=== PATIENT | male | born 1955 | race Caucasian/White ===

== ENCOUNTER → 2018-09-19 | Outpatient (CLI) | payer BC ==
[~2018-09-19] MED LIST: AVPAK AZITHROM250 M1 PO; DUONEB 3 MG/3 ML3 M1 INH; PREDNISONE10 MG PO; ROBITUSSIN AC 110 ML PO
== END | disposition home or self-care (01) ==
LOC: LAB 15:16
DX: E87.1 Hypo-osmolality and hyponatremia (principal)

== ENCOUNTER → 2018-10-04 | Outpatient (CLI) | payer BC ==
[2018-10-04 17:36] LABS: ALBUMIN 3.4 gm/dl (3.1-4.5); ALKALINE PHOSPHATASE 82 U/L (45-117); BUN 14 mg/dl (7-24); CHLORIDE 91 mmol/L (98-107); CHOLESTEROL 156 mg/dL (<200); CREATININE 0.86 mg/dL (0.70-1.30); HDL CHOLESTEROL 95 mg/dl (40-60); LDL CHOLESTEROL 50 mg/dL (9-159); POTASSIUM 4.5 mmol/L (3.5-5.1); SGOT/AST 44 IU/L (3-35); SGPT/ALT 28 U/L (12-78); SODIUM 128 mmol/L (136-145); TOTAL PROTEIN 7.5 gm/dL (6.4-8.2); TRIGLYCERIDES 56 mg/dl (<150); VLDL CHOLESTEROL 11 mg/dL (6-40)
== END | disposition home or self-care (01) ==
LOC: LAB 16:39
PROVIDERS: Family Medicine
DX: E78.00 Pure hypercholesterolemia, unspecified (principal); E74.9 Disorder of carbohydrate metabolism, unspecified

== ENCOUNTER → 2018-12-06 | Outpatient (CLI) | payer BC ==
[2018-12-06 17:23] LABS: ALBUMIN 3.6 gm/dl (3.1-4.5); BUN 11 mg/dl (7-24); CHLORIDE 92 mmol/L (98-107); CREATININE 0.71 mg/dL (0.70-1.30); PHOSPHOROUS 3.1 mg/dL (2.5-4.9); POTASSIUM 4.1 mmol/L (3.5-5.1); SODIUM 129 mmol/L (136-145)
== END | disposition home or self-care (01) ==
LOC: LAB 16:27
PROVIDERS: Family Medicine
DX: E87.0 Hyperosmolality and hypernatremia (principal)

== ENCOUNTER 2020-12-10 03:31 | Observation (INO) | payer MEDICARE ==
[~2020-12-10] VITALS: Ht 178 cm; Wt 41.4 kg
[2020-12-10 03:32] VITALS: BP 131/95
[2020-12-10 04:30] LABS: BASO % 0.3 % (0.0-1.0); EOS % 0.1 % (1.0-4.0); HEMATOCRIT 40.4 % (42.0-52.0); LYMPH # 0.5 10*3/uL (1.3-4.4); LYMPH % 4.4 % (27.0-41.0); MEAN CELL VOLUME 95.5 fl (80.0-94.0); MEAN CORPUSCULAR HGB 32.9 pg (27.0-31.0); MEAN CORPUSCULAR HGB CONC 34.4 g/dl (33.0-37.0); MEAN PLATELET VOLUME 8.5 fl (9.6-12.3); MONO # 0.7 10*3/uL (0.1-1.0); MONO % 5.5 % (3.0-9.0); NEUT # 10.6 10*3/uL (2.3-7.9); NEUT % 89.4 % (47.0-73.0); PLATELET COUNT AUTOMATED 455 10*3/uL (130-400); RED BLOOD COUNT 4.23 10*6/uL (4.50-5.90); RED CELL DISTRI WIDTH 12.8 % (0-14.5); WHITE BLOOD COUNT 11.8 10*3/uL (4.8-10.8)
[2020-12-10 04:46] LABS: ALBUMIN 3.1 gm/dl (3.1-4.5); ALKALINE PHOSPHATASE 106 U/L (45-117); BUN 21 mg/dl (7-24); CHLORIDE 87 mmol/L (98-107); CREATININE 0.92 mg/dL (0.70-1.30); POTASSIUM 4.1 mmol/L (3.5-5.1); SGOT/AST 24 IU/L (3-35); SGPT/ALT 18 U/L (12-78); SODIUM 123 mmol/L (136-145); TOTAL PROTEIN 7.4 gm/dL (6.4-8.2)
[2020-12-10 05:18] LABS: BILIRUBIN Negative (Negative); BLOOD Negative (Negative); CLARITY Clear (Clear); COLOR Yellow (Yellow); GLUCOSE Negative (Negative); KETONE Trace (Negative); LEUKO ESTERASE Negative (Negative); NITRITE Negative (Negative); SPECIFIC GRAVITY 1.015 (1.001-1.030)
[2020-12-10 05:26] LABS: UROBILINOGEN 0.2 E.U./dl (0.0-1.0)
[2020-12-10 05:57] LABS: RBC 0-2 rbc/hpf (0-2)
[2020-12-10 06:14] LABS: URINE AMPHETAMINES > 1000 (1000ng/ml); URINE BARBITURATES < 200 (200ng/ml); URINE BENZODIAZEPINES < 200 (200ng/ml); URINE CANNABINOIDS (THC) > 50 (50ng/ml); URINE COCAINE > 300 (300ng/ml); URINE METHADONE < 300 (300ng/ml); URINE OPIATES < 300 (300ng/ml)
[2020-12-10 06:18] LABS: URINE PHENCYCLIDINE < 25 (25ng/ml)
[2020-12-10 08:45] VITALS: BP 135/83
[2020-12-10] MEDS ORDERED: ATROVENT HFA12.9 GM INH (09:13)
[2020-12-10] MEDS ORDERED: ADVIL200 MG PO (09:14)
[2020-12-10 12:00] VITALS: BP 140/92
[2020-12-10 16:00] VITALS: BP 150/87
[2020-12-10 20:02] VITALS: BP 136/89
[2020-12-11] VITALS: BP 136/86
[2020-12-11 06:22] LABS: BASO % 0.2 % (0.0-1.0); EOS % 0.2 % (1.0-4.0); HEMATOCRIT 35.1 % (42.0-52.0); LYMPH # 0.4 10*3/uL (1.3-4.4); LYMPH % 4.4 % (27.0-41.0); MEAN CELL VOLUME 95.4 fl (80.0-94.0); MEAN CORPUSCULAR HGB 32.6 pg (27.0-31.0); MEAN CORPUSCULAR HGB CONC 34.2 g/dl (33.0-37.0); MEAN PLATELET VOLUME 8.5 fl (9.6-12.3); MONO # 0.6 10*3/uL (0.1-1.0); MONO % 5.9 % (3.0-9.0); NEUT # 8.8 10*3/uL (2.3-7.9); PLATELET COUNT AUTOMATED 366 10*3/uL (130-400); RED BLOOD COUNT 3.68 10*6/uL (4.50-5.90); RED CELL DISTRI WIDTH 12.9 % (0-14.5); WHITE BLOOD COUNT 9.9 10*3/uL (4.8-10.8)
[2020-12-11 06:53] LABS: ALBUMIN 2.3 gm/dl (3.1-4.5); ALKALINE PHOSPHATASE 86 U/L (45-117); BUN 18 mg/dl (7-24); CHLORIDE 89 mmol/L (98-107); CREATININE 0.62 mg/dL (0.70-1.30); POTASSIUM 3.7 mmol/L (3.5-5.1); SGOT/AST 19 IU/L (3-35); SGPT/ALT 14 U/L (12-78); SODIUM 125 mmol/L (136-145); TOTAL PROTEIN 6.2 gm/dL (6.4-8.2)
[2020-12-11 07:45] VITALS: BP 128/78
[2020-12-11 12:00] VITALS: BP 136/76
[2020-12-11 12:08] LABS: BUN 17 mg/dl (7-24); CHLORIDE 91 mmol/L (98-107); CREATININE 0.51 mg/dL (0.70-1.30); POTASSIUM 4.3 mmol/L (3.5-5.1); SODIUM 124 mmol/L (136-145)
[2020-12-11 16:00] VITALS: BP 130/92
== END 2020-12-11 20:36 | disposition left against medical advice (07) ==
LOC: ED 03:31 → 5E 07:22 → EDHOLD 07:22 → 5E 07:22
PROVIDERS: Emergency Medicine; Internal Medicine Nephrology; ADMIT Internal Medicine; ATTEND Internal Medicine
DX: F11.20 Opioid dependence, uncomplicated (principal); F10.20 Alcohol dependence, uncomplicated; E43 Unspecified severe protein-calorie malnutrition; Z20.822 Contact with and (suspected) exposure to COVID-19; R33.9 Retention of urine, unspecified; E87.1 Hypo-osmolality and hyponatremia; J20.9 Acute bronchitis, unspecified; E83.39 Other disorders of phosphorus metabolism; J44.9 Chronic obstructive pulmonary disease, unspecified

== ENCOUNTER 2020-12-17 02:17 | Emergency (ER) | payer MEDICARE ==
[~2020-12-17 02:17] MED LIST changes: +ADVIL200 MG PO; +ATROVENT HFA12.9 GM INH
== END 2020-12-17 04:00 | disposition left against medical advice (07) ==
LOC: ED 02:17
DX: R41.0 Disorientation, unspecified (principal); Z91.041 Radiographic dye allergy status; Z79.899 Other long term (current) drug therapy; Z53.29 Procedure and treatment not carried out because of patient's decision for other reasons

== ENCOUNTER 2021-01-04 18:29 | Inpatient (IN) | payer MEDICARE ==
[~2021-01-04] VITALS: Ht 182.8 cm; Wt 53.2 kg
[2021-01-04 18:35] VITALS: BP 135/85
[2021-01-04 19:05] LABS: MEAN CELL VOLUME 91.2 fl (80.0-94.0); MEAN CORPUSCULAR HGB 32.7 pg (27.0-31.0); MEAN CORPUSCULAR HGB CONC 35.9 g/dl (33.0-37.0); MEAN PLATELET VOLUME 7.8 fl (9.6-12.3); PLATELET COUNT AUTOMATED 677 10*3/uL (130-400); RED BLOOD COUNT 3.18 10*6/uL (4.50-5.90); RED CELL DISTRI WIDTH 12.2 % (0-14.5); WHITE BLOOD COUNT 21.9 10*3/uL (4.8-10.8)
[2021-01-04 19:11] LABS: BILIRUBIN Negative (Negative); BLOOD Negative (Negative); CLARITY Clear (Clear); COLOR Yellow (Yellow); GLUCOSE Negative (Negative); KETONE Negative (Negative); LEUKO ESTERASE Negative (Negative); NITRITE Negative (Negative); PH 7.5 (4.5-8.0); UROBILINOGEN 0.2 E.U./dl (0.0-1.0)
[2021-01-04 19:19] LABS: ACT PARTIAL THROMBO TIME 28.5 SECONDS (20.0-32.1); INTERNATIONAL NORM RATIO 1.1 (2.0-3.5)
[2021-01-04 19:21] LABS: BURR CELLS FEW; PLATELET SUFFICIENCY HIGH (NORMAL); TOTAL CELLS COUNTED 100 #CELLS
[2021-01-04 19:26] LABS: ALBUMIN 2.8 gm/dl (3.1-4.5); ALKALINE PHOSPHATASE 131 U/L (45-117); BUN 10 mg/dl (7-24); CHLORIDE 83 mmol/L (98-107); CREATININE 0.45 mg/dL (0.70-1.30); POTASSIUM 4.4 mmol/L (3.5-5.1); SGOT/AST 19 IU/L (3-35); SGPT/ALT 15 U/L (12-78)
[2021-01-04 19:30] LABS: ETHYL ALCOHOL < 3.0 mg/dl (<3); TROPONIN I < 0.015 ng/ml (<0.045)
[2021-01-04 19:31] LABS: SODIUM 117 mmol/L (136-145)
[2021-01-04 19:55] LABS: WBC 0-2 wbc/hpf (0-5)
[2021-01-04 20:39] VITALS: BP 132/82
[2021-01-05] VITALS (12 sets, daily range): BP systolic 120–147; BP diastolic 76–90
[2021-01-05 03:39] LABS: ALBUMIN 2.8 gm/dl (3.1-4.5); ALKALINE PHOSPHATASE 144 U/L (45-117); BUN 8 mg/dl (7-24); CHLORIDE 92 mmol/L (98-107); CREATININE 0.51 mg/dL (0.70-1.30); POTASSIUM 4.4 mmol/L (3.5-5.1); SGOT/AST 16 IU/L (3-35); SGPT/ALT 14 U/L (12-78); SODIUM 127 mmol/L (136-145); TOTAL PROTEIN 7.6 gm/dL (6.4-8.2)
[2021-01-06] VITALS: BP 130/82
[2021-01-06 08:00] VITALS: BP 135/78
[2021-01-06 12:00] VITALS: BP 138/66
[2021-01-06 16:00] VITALS: BP 145/58
[2021-01-06 20:00] VITALS: BP 136/80
[2021-01-07] VITALS: BP 154/88
[2021-01-07 06:15] LABS: BASO # 0.1 10*3/uL (0.0-0.1); BASO % 0.7 % (0.0-1.0); BUN 16 mg/dl (7-24); CHLORIDE 87 mmol/L (98-107); CREATININE 0.38 mg/dL (0.70-1.30); EOS # 0.2 10*3/uL (0.0-0.4); EOS % 1.7 % (1.0-4.0); HEMATOCRIT 34.1 % (42.0-52.0); LYMPH # 1.3 10*3/uL (1.3-4.4); LYMPH % 11.2 % (27.0-41.0); MEAN CELL VOLUME 95.8 fl (80.0-94.0); MEAN CORPUSCULAR HGB 31.7 pg (27.0-31.0); MEAN CORPUSCULAR HGB CONC 33.1 g/dl (33.0-37.0); MEAN PLATELET VOLUME 7.9 fl (9.6-12.3); MONO # 0.8 10*3/uL (0.1-1.0); MONO % 7.1 % (3.0-9.0); NEUT # 8.8 10*3/uL (2.3-7.9); NEUT % 78.1 % (47.0-73.0); PLATELET COUNT AUTOMATED 773 10*3/uL (130-400); POTASSIUM 4.6 mmol/L (3.5-5.1); RED BLOOD COUNT 3.56 10*6/uL (4.50-5.90); RED CELL DISTRI WIDTH 12.6 % (0-14.5); SODIUM 125 mmol/L (136-145); WHITE BLOOD COUNT 11.3 10*3/uL (4.8-10.8)
[2021-01-07 08:00] VITALS: BP 126/91
[2021-01-07 12:00] VITALS: BP 136/80
[2021-01-07 16:00] VITALS: BP 148/97
[2021-01-07 20:00] VITALS: BP 126/81
[2021-01-08] VITALS: BP 120/68
[2021-01-08 08:00] VITALS: BP 146/84
[2021-01-08] MEDS ORDERED: CIPRO500 MG PO (08:28)
[2021-01-08 12:00] VITALS: BP 127/90
== END 2021-01-08 15:34 | disposition home or self-care (01) | DRG 178 ==
LOC: ED 18:29 → EDHOLD 21:27 → 4E 21:27 → EDHOLD 01-05 19:19 → 4E 01-05 19:20
PROVIDERS: Emergency Medicine; ADMIT Internal Medicine; ATTEND Internal Medicine
DX: J69.0 Pneumonitis due to inhalation of food and vomit (principal); E87.1 Hypo-osmolality and hyponatremia; F10.231 Alcohol dependence with withdrawal delirium; E44.1 Mild protein-calorie malnutrition; F19.10 Other psychoactive substance abuse, uncomplicated; Z20.822 Contact with and (suspected) exposure to COVID-19; J44.9 Chronic obstructive pulmonary disease, unspecified; E87.8 Other disorders of electrolyte and fluid balance, not elsewhere classified; R91.1 Solitary pulmonary nodule; Z91.041 Radiographic dye allergy status

== ENCOUNTER 2021-08-14 17:53 | Inpatient (IN) | payer OTHER, MEDICAID ==
[~2021-08-14] VITALS: Ht 177.8 cm; Wt 50.5 kg
[~2021-08-14 17:53] MED LIST changes: +CIPRO500 MG PO
[2021-08-14 17:54] VITALS: BP 206/122
[2021-08-14 18:19] LABS: BASO # 0.1 10*3/uL (0.0-0.1); BASO % 0.5 % (0.0-1.0); EOS # 0.2 10*3/uL (0.0-0.4); EOS % 0.9 % (1.0-4.0); HEMATOCRIT 39.7 % (42.0-52.0); LYMPH # 0.9 10*3/uL (1.3-4.4); LYMPH % 4.4 % (27.0-41.0); MEAN CELL VOLUME 92.1 fl (80.0-94.0); MEAN CORPUSCULAR HGB 31.6 pg (27.0-31.0); MEAN CORPUSCULAR HGB CONC 34.3 g/dl (33.0-37.0); MEAN PLATELET VOLUME 7.9 fl (9.6-12.3); MONO # 0.8 10*3/uL (0.1-1.0); MONO % 3.9 % (3.0-9.0); NEUT # 17.4 10*3/uL (2.3-7.9); NEUT % 89.7 % (47.0-73.0); PLATELET COUNT AUTOMATED 479 10*3/uL (130-400); RED BLOOD COUNT 4.31 10*6/uL (4.50-5.90); RED CELL DISTRI WIDTH 12.6 % (0-14.5); WHITE BLOOD COUNT 19.4 10*3/uL (4.8-10.8)
[2021-08-14 18:31] LABS: ACT PARTIAL THROMBO TIME 30.2 SECONDS (20.0-32.1)
[2021-08-14 18:34] LABS: ALBUMIN 3.8 gm/dl (3.1-4.5); ALKALINE PHOSPHATASE 132 U/L (45-117); BUN 14 mg/dl (7-24); CHLORIDE 81 mmol/L (98-107); CREATININE 0.68 mg/dL (0.70-1.30); POTASSIUM 4.1 mmol/L (3.5-5.1); SGOT/AST 41 IU/L (3-35); SGPT/ALT 20 U/L (12-78); SODIUM 120 mmol/L (136-145); TOTAL PROTEIN 8.9 gm/dL (6.4-8.2)
[2021-08-14 18:43] LABS: ETHYL ALCOHOL < 3.0 mg/dl (<3)
[2021-08-14 19:13] LABS: BILIRUBIN Negative (Negative); BLOOD Negative (Negative); CLARITY Clear (Clear); COLOR Yellow (Yellow); GLUCOSE Negative (Negative); KETONE Trace (Negative); LEUKO ESTERASE Negative (Negative); NITRITE Negative (Negative); UROBILINOGEN 0.2 E.U./dl (0.0-1.0)
[2021-08-14 19:19] LABS: BACTERIA TRACE; EPITHELIAL CELLS 0-2; RBC 0-2 rbc/hpf (0-2); WBC 0-2 wbc/hpf (0-5)
[2021-08-14 19:21] LABS: URINE AMPHETAMINES > 1000 (1000ng/ml); URINE BARBITURATES < 200 (200ng/ml); URINE BENZODIAZEPINES < 200 (200ng/ml); URINE CANNABINOIDS (THC) > 50 (50ng/ml); URINE COCAINE < 300 (300ng/ml); URINE METHADONE < 300 (300ng/ml); URINE OPIATES < 300 (300ng/ml); URINE PHENCYCLIDINE < 25 (25ng/ml)
[2021-08-14 20:56] VITALS: BP 170/80
[2021-08-14 22:50] VITALS: BP 162/96
[2021-08-14 22:59] LABS: ALBUMIN 3.2 gm/dl (3.1-4.5); ALKALINE PHOSPHATASE 121 U/L (45-117); BUN 12 mg/dl (7-24); CHLORIDE 85 mmol/L (98-107); CREATININE 0.52 mg/dL (0.70-1.30); POTASSIUM 4.3 mmol/L (3.5-5.1); SGOT/AST 39 IU/L (3-35); SGPT/ALT 18 U/L (12-78); SODIUM 121 mmol/L (136-145)
[2021-08-14 23:16] VITALS: BP 170/56
[2021-08-15] VITALS: BP 160/107
[2021-08-15 04:02] VITALS: BP 166/95
[2021-08-15 06:01] LABS: HEMATOCRIT 38.1 % (42.0-52.0); MEAN CELL VOLUME 91.4 fl (80.0-94.0); MEAN CORPUSCULAR HGB 31.7 pg (27.0-31.0); MEAN CORPUSCULAR HGB CONC 34.6 g/dl (33.0-37.0); MEAN PLATELET VOLUME 8.1 fl (9.6-12.3); PLATELET COUNT AUTOMATED 456 10*3/uL (130-400); RED BLOOD COUNT 4.17 10*6/uL (4.50-5.90); RED CELL DISTRI WIDTH 12.5 % (0-14.5); WHITE BLOOD COUNT 19.9 10*3/uL (4.8-10.8)
[2021-08-15 06:12] LABS: ALKALINE PHOSPHATASE 116 U/L (45-117); CHLORIDE 85 mmol/L (98-107); POTASSIUM 4.1 mmol/L (3.5-5.1); SODIUM 122 mmol/L (136-145)
[2021-08-15 06:30] LABS: ALBUMIN 2.9 gm/dl (3.1-4.5); BUN 11 mg/dl (7-24); CREATININE 0.57 mg/dL (0.70-1.30); SGOT/AST 34 IU/L (3-35); SGPT/ALT 16 U/L (12-78); TOTAL PROTEIN 7.4 gm/dL (6.4-8.2)
[2021-08-15 06:53] LABS: PLATELET SUFFICIENCY NORMAL (NORMAL); TOTAL CELLS COUNTED 100 #CELLS
[2021-08-15 08:04] VITALS: BP 173/89
[2021-08-15 11:23] VITALS: BP 148/88
[2021-08-15 12:33] LABS: ALBUMIN 2.9 gm/dl (3.1-4.5); ALKALINE PHOSPHATASE 104 U/L (45-117); BUN 12 mg/dl (7-24); CHLORIDE 87 mmol/L (98-107); CREATININE 0.77 mg/dL (0.70-1.30); POTASSIUM 3.9 mmol/L (3.5-5.1); SGOT/AST 28 IU/L (3-35); SGPT/ALT 15 U/L (12-78); SODIUM 125 mmol/L (136-145); TOTAL PROTEIN 7.6 gm/dL (6.4-8.2)
[2021-08-15 16:00] VITALS: BP 150/86
[2021-08-15 16:22] LABS: BUN 15 mg/dl (7-24); CHLORIDE 89 mmol/L (98-107); CREATININE 0.64 mg/dL (0.70-1.30); SODIUM 125 mmol/L (136-145)
[2021-08-15 20:00] VITALS: BP 164/98
[2021-08-16] VITALS: BP 140/80
[2021-08-16 04:00] VITALS: BP 139/83
[2021-08-16 05:39] LABS: ALBUMIN 2.7 gm/dl (3.1-4.5); BUN 14 mg/dl (7-24); CHLORIDE 91 mmol/L (98-107); CREATININE 0.54 mg/dL (0.70-1.30); POTASSIUM 3.5 mmol/L (3.5-5.1); SGOT/AST 27 IU/L (3-35); SGPT/ALT 14 U/L (12-78); SODIUM 128 mmol/L (136-145); TOTAL PROTEIN 7.2 gm/dL (6.4-8.2)
[2021-08-16 05:40] LABS: ALKALINE PHOSPHATASE 93 U/L (45-117)
[2021-08-16 08:00] VITALS: BP 146/90
[2021-08-16 12:00] VITALS: BP 124/93
[2021-08-16 16:00] VITALS: BP 130/86
[2021-08-16 16:39] LABS: BUN 17 mg/dl (7-24); CHLORIDE 92 mmol/L (98-107); CREATININE 0.43 mg/dL (0.70-1.30); SODIUM 129 mmol/L (136-145)
[2021-08-16 20:00] VITALS: BP 146/94
[2021-08-17] VITALS: BP 135/89
[2021-08-17 07:27] LABS: BASO % 0.4 % (0.0-1.0); EOS # 0.2 10*3/uL (0.0-0.4); EOS % 2.2 % (1.0-4.0); HEMATOCRIT 31.8 % (42.0-52.0); LYMPH # 1.1 10*3/uL (1.3-4.4); LYMPH % 16.1 % (27.0-41.0); MEAN CELL VOLUME 92.2 fl (80.0-94.0); MEAN CORPUSCULAR HGB 31.6 pg (27.0-31.0); MEAN CORPUSCULAR HGB CONC 34.3 g/dl (33.0-37.0); MEAN PLATELET VOLUME 7.8 fl (9.6-12.3); MONO # 0.6 10*3/uL (0.1-1.0); MONO % 8.6 % (3.0-9.0); NEUT % 72.3 % (47.0-73.0); PLATELET COUNT AUTOMATED 366 10*3/uL (130-400); RED BLOOD COUNT 3.45 10*6/uL (4.50-5.90); RED CELL DISTRI WIDTH 12.8 % (0-14.5); WHITE BLOOD COUNT 6.9 10*3/uL (4.8-10.8)
[2021-08-17 07:47] LABS: ALBUMIN 2.4 gm/dl (3.1-4.5); ALKALINE PHOSPHATASE 76 U/L (45-117); BUN 12 mg/dl (7-24); CHLORIDE 91 mmol/L (98-107); CREATININE 0.58 mg/dL (0.70-1.30); POTASSIUM 3.8 mmol/L (3.5-5.1); SGOT/AST 22 IU/L (3-35); SGPT/ALT 14 U/L (12-78); SODIUM 127 mmol/L (136-145); TOTAL PROTEIN 6.5 gm/dL (6.4-8.2)
[2021-08-17 08:00] VITALS: BP 148/85
[2021-08-17 12:00] VITALS: BP 156/92
[2021-08-17 16:00] VITALS: BP 155/96
[2021-08-17 17:00] LABS: BUN 15 mg/dl (7-24); CHLORIDE 86 mmol/L (98-107); CREATININE 0.62 mg/dL (0.70-1.30); POTASSIUM 4.3 mmol/L (3.5-5.1); SODIUM 125 mmol/L (136-145)
[2021-08-17 20:00] VITALS: BP 148/88
[2021-08-18] VITALS: BP 146/76
[2021-08-18 08:00] VITALS: BP 170/95
[2021-08-18] MEDS ORDERED: Ipratropium Brom3 ML INH (08:30)
[2021-08-18] MEDS ORDERED: LEVOFLOXACIN500 MG PO ×2 (08:31→08:38)
== END 2021-08-18 10:16 | disposition home or self-care (01) | DRG 871 ==
LOC: ED 17:53 → ICCU 18:55 → EDHOLD 18:55 → ICCU 23:03 → 4E 08-16 15:23
PROVIDERS: Emergency Medicine; Internal Medicine; Internal Medicine Nephrology; ADMIT Internal Medicine; ATTEND Internal Medicine
DX: A41.9 Sepsis, unspecified organism (principal); J69.0 Pneumonitis due to inhalation of food and vomit; E44.1 Mild protein-calorie malnutrition; E87.1 Hypo-osmolality and hyponatremia; J44.1 Chronic obstructive pulmonary disease with (acute) exacerbation; J98.11 Atelectasis; F10.231 Alcohol dependence with withdrawal delirium; Z68.1 Body mass index [BMI] 19.9 or less, adult; R73.9 Hyperglycemia, unspecified; Z20.822 Contact with and (suspected) exposure to COVID-19; E87.8 Other disorders of electrolyte and fluid balance, not elsewhere classified; R91.1 Solitary pulmonary nodule; E88.09 Other disorders of plasma-protein metabolism, not elsewhere classified; Z71.6 Tobacco abuse counseling; Z88.6 Allergy status to analgesic agent

== ENCOUNTER 2024-05-13 21:55 | Emergency (ER) | payer MEDICARE, MEDICAID ==
[~2024-05-13] VITALS: Ht 177.8 cm; Wt 46.9 kg
[~2024-05-13 21:55] MED LIST changes: +Ipratropium Brom3 ML INH; +LEVOFLOXACIN500 MG PO
[2024-05-13] MEDS ORDERED: Lactated Ringer's Solution 500 ML IV SCH (22:20)
[2024-05-13 22:39] LABS: BASO # 0.1 10*3/uL (0.0-0.1); BASO % 0.5 % (0.0-1.0); EOS # 0.1 10*3/uL (0.0-0.4); EOS % 0.5 % (1.0-4.0); HEMATOCRIT 33.7 % (42.0-52.0); LYMPH # 1.1 10*3/uL (1.3-4.4); LYMPH % 11.3 % (27.0-41.0); MEAN CELL VOLUME 98.5 fl (80.0-94.0); MEAN CORPUSCULAR HGB 30.1 pg (27.0-31.0); MEAN CORPUSCULAR HGB CONC 30.6 g/dl (33.0-37.0); MEAN PLATELET VOLUME 8.7 fl (9.6-12.3); MONO # 0.9 10*3/uL (0.1-1.0); MONO % 8.9 % (3.0-9.0); NEUT # 7.5 10*3/uL (2.3-7.9); NEUT % 78.5 % (47.0-73.0); PLATELET COUNT AUTOMATED 450 10*3/uL (130-400); RED BLOOD COUNT 3.42 10*6/uL (4.50-5.90); RED CELL DISTRI WIDTH 16.4 % (0-14.5); WHITE BLOOD COUNT 9.6 10*3/uL (4.8-10.8)
[2024-05-13 22:52] LABS: ACT PARTIAL THROMBO TIME 29.6 SECONDS (20.0-32.1)
[2024-05-13] MEDS ORDERED: MORPHINE Sulfate 2 MG/ML SYR IV ONE (22:55)
[2024-05-13 23:00] LABS: ALKALINE PHOSPHATASE 179 U/L (46-116); BUN 15 mg/dl (9-23); CHLORIDE 92 mmol/L (98-107); POTASSIUM 3.6 mmol/L (3.4-5.1); TOTAL PROTEIN 7.1 gm/dL (6.0-8.0)
[2024-05-13 23:06] LABS: SGPT/ALT < 7 U/L (5-49)
[2024-05-13] MEDS ORDERED: Lactated Ringer's Solution 1,000 ML IV ONE (23:08)
== END 2024-05-13 23:55 | disposition short-term general hospital (02) ==
LOC: ED 21:55
PROVIDERS: Internal Medicine
DX: T20.30XA Burn of third degree of head, face, and neck, unspecified site, initial encounter (principal); T31.0 Burns involving less than 10% of body surface; J44.9 Chronic obstructive pulmonary disease, unspecified; Z91.041 Radiographic dye allergy status; Z98.890 Other specified postprocedural states; X08.8XXA Exposure to other specified smoke, fire and flames, initial encounter; Y93.89 Activity, other specified; Y92.89 Other specified places as the place of occurrence of the external cause; Y99.8 Other external cause status

== ENCOUNTER 2024-06-21 19:06 | Inpatient (IN) | payer MEDICARE, MEDICAID ==
[~2024-06-21] VITALS: Ht 175.2 cm; Wt 45.5 kg
[2024-06-21 19:10] VITALS: BP 105/57
[2024-06-21 20:18] LABS: POTASSIUM 5.8 mmol/L (3.4-5.1); TOTAL PROTEIN 8.2 gm/dL (6.0-8.0)
[2024-06-21 20:18] LABS: BILIRUBIN Negative (Negative); BLOOD Trace-Lysed (Negative); CLARITY Clear (Clear); COLOR Dark Yellow (Yellow); GLUCOSE Negative (Negative); KETONE Negative (Negative); LEUKO ESTERASE Trace (Negative); NITRITE Negative (Negative); PH 5.5 (4.5-8.0); SPECIFIC GRAVITY 1.015 (1.001-1.030); UROBILINOGEN 0.2 E.U./dl (0.0-1.0)
[2024-06-21] MEDS ORDERED: LORazepam 2 MG/ML VIAL IV ONE (20:35)
[2024-06-21 20:49] LABS: HEMATOCRIT 41.4 % (42.0-52.0); MANUAL DIFF REFLEX YES; MEAN CORPUSCULAR HGB 29.1 pg (27.0-31.0); MEAN CORPUSCULAR HGB CONC 32.4 g/dl (33.0-37.0); MEAN PLATELET VOLUME 10.1 fl (9.6-12.3); PLATELET COUNT AUTOMATED 327 10*3/uL (130-400); WHITE BLOOD COUNT 3.9 10*3/uL (4.8-10.8)
[2024-06-21 21:01] LABS: BACTERIA TRACE; EPITHELIAL CELLS 0-2
[2024-06-21] MEDS ORDERED: SODIUM CHLORIDE 0.9% 1,000 ML IV ONE (21:05)
[2024-06-21] MEDS ORDERED: Ceftriaxone Sodium 1 GM/10 ML SYR IV ONE (21:05)
[2024-06-21] MEDS ORDERED: AZITHROMYCIN 250 ML IV ONE (21:05)
[2024-06-21 21:15] LABS: BASOPHILS 1 % (0-1); TOTAL CELLS COUNTED 100 #CELLS
[2024-06-21 21:16] LABS: DOHLE BODIES MODERATE; PLATELET SUFFICIENCY NORMAL (NORMAL)
[2024-06-21 21:34] VITALS: BP 135/74
[2024-06-21 22:17] VITALS: BP 113/49
[2024-06-21] MEDS ORDERED: BUSPIRONE HCL10 MG PO (23:03)
[2024-06-21] MEDS ORDERED: ALBUTEROL HFA 90MCG (23:03)
[2024-06-21 23:42] VITALS: BP 97/60
[2024-06-22] VITALS (9 sets, daily range): BP systolic 95–125; BP diastolic 49–60
[2024-06-22] MEDS ORDERED: Albuterol Sulf/Ipratropium 3 ML VIAL NEB ONE (01:30)
[2024-06-22] MEDS ORDERED: CALCIUM GLUC IN NACL, ISO-OSM 100 ML IV ONE (01:30)
[2024-06-22] MEDS ORDERED: INSULIN REGULAR, HUMAN 1 UNIT/0.01 ML IV ONE (01:30)
[2024-06-22] MEDS ORDERED: DEXTROSE 50% 25 GM/50 ML SYR IV ONE (01:30)
[2024-06-22] MEDS ORDERED: SODIUM CHLORIDE 0.9% 500 ML IV ONE (01:30)
[2024-06-22] MEDS ORDERED: CALCIUM GLUCONATE 1 GM/10 ML VIAL ONE (02:09)
[2024-06-22] MEDS ORDERED: SODIUM CHLORIDE 0.9% 100 ML IV ONE (02:09)
[2024-06-22] MEDS ORDERED: Dexamethasone Sodium Phospha 4 MG/ML VIAL IV ONE (02:30)
[2024-06-22] MEDS ORDERED: DEXTROSE 10 % IN WATER 250 ML IV ONE ×2 (03:35→03:45)
[2024-06-22 06:13] LABS: MEAN CELL VOLUME 92.6 fl (80.0-94.0); MEAN CORPUSCULAR HGB 29.2 pg (27.0-31.0); MEAN CORPUSCULAR HGB CONC 31.5 g/dl (33.0-37.0); MEAN PLATELET VOLUME 9.4 fl (9.6-12.3); PLATELET COUNT AUTOMATED 237 10*3/uL (130-400); RED BLOOD COUNT 4.32 10*6/uL (4.50-5.90); RED CELL DISTRI WIDTH 15.9 % (0-14.5); WHITE BLOOD COUNT 2.7 10*3/uL (4.8-10.8)
[2024-06-22 06:14] LABS: MANUAL DIFF REFLEX YES
[2024-06-22 06:17] LABS: POTASSIUM 5.1 mmol/L (3.4-5.1)
[2024-06-22 06:35] LABS: BURR CELLS MODERATE; PLATELET SUFFICIENCY NORMAL (NORMAL); POLYCHROMASIA SLIGHT; ROULEAUX SLIGHT; SCHISTOCYTES FEW; TOTAL CELLS COUNTED 100 #CELLS; TOXIC GRANULATION SLIGHT; VACUOLATION OF NEUTROPHILS SLIGHT
[2024-06-22] MEDS ORDERED: Albuterol Sulfate 2.5 MG/3 ML VIAL NEB SCH (10:10)
[2024-06-22] MEDS ORDERED: Vancomycin Hydrochloride 1,000 MG VIAL IV SCH (10:10)
[2024-06-22 10:24] LABS: ABG BASE EXCESS 0.8 mmol/L (-2.0-3.0); ABG O2 SATURATION 88.1 % (94.0-98.0); ARTERIAL BLOOD GAS PH 7.31 (7.350-7.450); ARTERIAL BLOOD GAS PO2 58.7 mmHg (83.0-108.0)
[2024-06-22] MEDS ORDERED: SODIUM CHLORIDE 0.9% 1,000 ML IV SCH ×2 (10:50→21:15)
[2024-06-22] MEDS ORDERED: CEFEPIME HYDROCHLORIDE IV SCH (11:00)
[2024-06-22] MEDS ORDERED: SODIUM CHLORIDE 0.9% IV SCH (11:00)
[2024-06-22] MEDS ORDERED: SODIUM CHLORIDE 0.9% 1,000 ML IV ONE ×2 (11:24→11:45)
[2024-06-22] MEDS ORDERED: VANCOMYCIN/WATER FOR INJ (PEG) 150 ML IV SCH (12:00)
[2024-06-22 12:53] LABS: ABG BASE EXCESS -2.2 mmol/L (-2.0-3.0); ABG O2 SATURATION 95.1 % (94.0-98.0); ARTERIAL BLOOD GAS PH 7.288 (7.350-7.450); ARTERIAL BLOOD GAS PO2 82.5 mmHg (83.0-108.0)
[2024-06-22 16:06] LABS: URINE AMPHETAMINES Positive (1000ng/ml); URINE BARBITURATES Negative (200ng/ml); URINE BENZODIAZEPINES Negative (200ng/ml); URINE CANNABINOIDS (THC) Negative (50ng/ml); URINE COCAINE Negative (300ng/ml); URINE METHADONE Negative (300ng/ml); URINE OPIATES Negative (300ng/ml); URINE PHENCYCLIDINE Negative (25ng/ml)
[2024-06-22 17:04] LABS: ABG O2 SATURATION 93.8 % (94.0-98.0); ARTERIAL BLOOD GAS PH 7.323 (7.350-7.450); ARTERIAL BLOOD GAS PO2 77.4 mmHg (83.0-108.0)
[2024-06-22 17:05] LABS: ABG BASE EXCESS -2.1 mmol/L (-2.0-3.0)
[2024-06-22 17:35] LABS: URINE CREATININE RANDOM 78.71 mg/dL
[2024-06-22 17:35] LABS: POTASSIUM 5.2 mmol/L (3.4-5.1); TOTAL PROTEIN 6.4 gm/dL (6.0-8.0)
[2024-06-22] MEDS ORDERED: DEXTROSE 50% 25 GM/50 ML VIAL IV ONE ×2 (18:05→18:15)
[2024-06-22] MEDS ORDERED: AZITHROMYCIN 250 ML IV SCH (19:10)
[2024-06-23] VITALS: BP 107/59
[2024-06-23 03:58] VITALS: BP 102/56
[2024-06-23 06:33] LABS: HEMATOCRIT 35.4 % (42.0-52.0); MEAN CELL VOLUME 91.5 fl (80.0-94.0); MEAN CORPUSCULAR HGB 28.9 pg (27.0-31.0); MEAN CORPUSCULAR HGB CONC 31.6 g/dl (33.0-37.0); MEAN PLATELET VOLUME 9.4 fl (9.6-12.3); NUCLEATED RED BLOOD CELL 0.5 % (0.0-0.0); PLATELET COUNT AUTOMATED 249 10*3/uL (130-400); RED BLOOD COUNT 3.87 10*6/uL (4.50-5.90); RED CELL DISTRI WIDTH 15.9 % (0-14.5); WHITE BLOOD COUNT 7.6 10*3/uL (4.8-10.8)
[2024-06-23 06:37] LABS: MANUAL DIFF REFLEX YES
[2024-06-23 07:22] LABS: BURR CELLS MODERATE; PLATELET SUFFICIENCY NORMAL (NORMAL); TOTAL CELLS COUNTED 100 #CELLS
[2024-06-23 07:25] LABS: POLYCHROMASIA SLIGHT; TOXIC GRANULATION MODERATE
[2024-06-23 07:28] LABS: MICROCYTOSIS SLIGHT
[2024-06-23 08:00] VITALS: BP 104/60
[2024-06-23 10:54] LABS: TOTAL PROTEIN 5.6 gm/dL (6.0-8.0)
[2024-06-23 11:07] LABS: POTASSIUM 4.1 mmol/L (3.4-5.1)
[2024-06-23] MEDS ORDERED: Cefepime Hydrochloride 1 GM in SODIUM CHLORIDE 0.9% 50 ML IV ONE (11:35)
[2024-06-23 11:45] VITALS: BP 118/67
[2024-06-23 15:18] VITALS: BP 122/74
[2024-06-23 19:55] VITALS: BP 116/73
[2024-06-23] MEDS ORDERED: Cefepime Hydrochloride 2 GM in SODIUM CHLORIDE 0.9% 50 ML IV SCH (22:00)
[2024-06-24] VITALS: BP 132/73
[2024-06-24 03:59] VITALS: BP 130/80
[2024-06-24 05:07] LABS: HBSAG Negative (Negative); HEP B CORE AB, IGM Negative (Negative); HEPATITIS C ANTIBODY Non Reactive (Non Reactive)
[2024-06-24 05:25] LABS: BUN 39 mg/dl (9-23); CHLORIDE 104 mmol/L (98-107); POTASSIUM 3.5 mmol/L (3.4-5.1)
[2024-06-24 06:10] LABS: HEMATOCRIT 34.1 % (42.0-52.0); MEAN CELL VOLUME 92.4 fl (80.0-94.0); MEAN CORPUSCULAR HGB 28.5 pg (27.0-31.0); MEAN CORPUSCULAR HGB CONC 30.8 g/dl (33.0-37.0); NUCLEATED RED BLOOD CELL 0.1 10*3/uL (0.0-0.0); NUCLEATED RED BLOOD CELL 0.9 % (0.0-0.0); PLATELET COUNT AUTOMATED 182 10*3/uL (130-400); RED BLOOD COUNT 3.69 10*6/uL (4.50-5.90); RED CELL DISTRI WIDTH 16.2 % (0-14.5); WHITE BLOOD COUNT 10.6 10*3/uL (4.8-10.8)
[2024-06-24 06:16] LABS: MANUAL DIFF REFLEX YES
[2024-06-24 06:52] LABS: POLYCHROMASIA SLIGHT; TARGET CELLS FEW; TOTAL CELLS COUNTED 100 #CELLS
[2024-06-24 06:53] LABS: BURR CELLS MODERATE; PLATELET SUFFICIENCY NORMAL (NORMAL); ROULEAUX SLIGHT; TOXIC GRANULATION SLIGHT; VACUOLATION OF NEUTROPHILS SLIGHT
[2024-06-24 06:54] LABS: SCHISTOCYTES FEW
[2024-06-24 08:00] VITALS: BP 142/86
[2024-06-24 12:00] VITALS: BP 159/98
[2024-06-24] MEDS ORDERED: Ceftriaxone Sodium 2 GM in SYRINGE INFUSION 20 ML IV SCH (14:43)
[2024-06-24 16:00] VITALS: BP 149/98
[2024-06-24] MEDS ORDERED: Piperacillin Sodium/Tazobact 4.5 GM in SODIUM CHLORIDE 0.9% 100 ML IV SCH (16:00)
[2024-06-24 19:50] VITALS: BP 141/92
[2024-06-24] MEDS ORDERED: AZITHROMYCIN 250 ML IV SCH (21:00)
[2024-06-25] VITALS: BP 135/81
[2024-06-25 04:00] VITALS: BP 140/86
[2024-06-25 08:00] VITALS: BP 153/87
[2024-06-25 12:00] VITALS: BP 133/80
[2024-06-25] MEDS ORDERED: VANCOMYCIN/WATER FOR INJ (PEG) 150 ML IV SCH (12:00)
[2024-06-25 16:00] VITALS: BP 134/82
[2024-06-25 20:00] VITALS: BP 132/80
[2024-06-26] VITALS: BP 148/82
[2024-06-26 04:00] VITALS: BP 145/89
[2024-06-26 06:11] LABS: BASO % 0.2 % (0.0-1.0); HEMATOCRIT 35.2 % (42.0-52.0); LYMPH # 0.7 10*3/uL (1.3-4.4); MEAN CELL VOLUME 89.3 fl (80.0-94.0); MEAN CORPUSCULAR HGB 28.2 pg (27.0-31.0); MEAN CORPUSCULAR HGB CONC 31.5 g/dl (33.0-37.0); MEAN PLATELET VOLUME 9.7 fl (9.6-12.3); MONO # 0.2 10*3/uL (0.1-1.0); MONO % 1.9 % (3.0-9.0); NEUT # 10.4 10*3/uL (2.3-7.9); NEUT % 89.9 % (47.0-73.0); NUCLEATED RED BLOOD CELL 0.1 10*3/uL (0.0-0.0); NUCLEATED RED BLOOD CELL 0.6 % (0.0-0.0); PLATELET COUNT AUTOMATED 138 10*3/uL (130-400); RED BLOOD COUNT 3.94 10*6/uL (4.50-5.90); RED CELL DISTRI WIDTH 16.1 % (0-14.5); WHITE BLOOD COUNT 11.6 10*3/uL (4.8-10.8)
[2024-06-26 06:44] LABS: ALKALINE PHOSPHATASE 76 U/L (46-116); BUN 14 mg/dl (9-23); CHLORIDE 95 mmol/L (98-107); SGPT/ALT 108 U/L (5-49); TOTAL PROTEIN 5.9 gm/dL (6.0-8.0)
[2024-06-26 06:55] LABS: POTASSIUM 2.3 mmol/L (3.4-5.1)
[2024-06-26] MEDS ORDERED: POTASSIUM CHLORIDE 20 MEQ TAB PO ONE ×2 (07:05→14:20)
[2024-06-26] MEDS ORDERED: DEXTROSE 5% SALINE 0.9% 1,000 ML IV SCH (07:55)
[2024-06-26 08:00] VITALS: BP 146/89
[2024-06-26] MEDS ORDERED: POTASSIUM CHLORIDE IN WATER 100 ML IV SCH (08:00)
[2024-06-26] MEDS ORDERED: DEXTROSE 50% 25 GM/50 ML SYR IV ONE (08:00)
[2024-06-26] MEDS ORDERED: FOAM BANDAGE 1 EACH BANDAGE T ONE (08:38)
[2024-06-26] MEDS ORDERED: DEXTROSE 50% 25 GM/50 ML VIAL IV ONE (08:46)
[2024-06-26 12:00] VITALS: BP 140/85
[2024-06-26] MEDS ORDERED: FUROSEMIDE 20 MG/2 ML VIAL IV ONE (14:20)
[2024-06-26 16:00] VITALS: BP 112/65
[2024-06-26] MEDS ORDERED: MAGNESIUM SULFATE 100 ML IV ONE (16:50)
[2024-06-26] MEDS ORDERED: AMOX-CLAV 875-1 EACH PO (17:53)
[2024-06-26] MEDS ORDERED: LEVOFLOXACIN750 M2 PO (17:53)
[2024-06-26] MEDS ORDERED: predniSONE 20 MG TAB PO ONE (17:55)
[2024-06-26 20:00] VITALS: BP 137/80
[2024-06-27] VITALS: BP 111/71
[2024-06-27 04:00] VITALS: BP 109/70
[2024-06-27 05:57] LABS: ALKALINE PHOSPHATASE 78 U/L (46-116); BUN 18 mg/dl (9-23); CHLORIDE 95 mmol/L (98-107); POTASSIUM 3.5 mmol/L (3.4-5.1); SGPT/ALT 71 U/L (5-49); TOTAL PROTEIN 5.9 gm/dL (6.0-8.0)
[2024-06-27] MEDS ORDERED: diphenhydrAMINE hydrochloride 25 MG CAP PO SCH ×2 (06:00→11:00)
[2024-06-27] MEDS ORDERED: predniSONE 20 MG TAB PO SCH ×3 (06:00→11:00)
[2024-06-27 06:25] LABS: HEMATOCRIT 36.1 % (42.0-52.0); MANUAL DIFF REFLEX YES; MEAN CELL VOLUME 91.2 fl (80.0-94.0); MEAN CORPUSCULAR HGB 28.3 pg (27.0-31.0); MEAN PLATELET VOLUME 9.6 fl (9.6-12.3); NUCLEATED RED BLOOD CELL 0.5 % (0.0-0.0); PLATELET COUNT AUTOMATED 147 10*3/uL (130-400); RED BLOOD COUNT 3.96 10*6/uL (4.50-5.90); RED CELL DISTRI WIDTH 16.1 % (0-14.5); WHITE BLOOD COUNT 7.8 10*3/uL (4.8-10.8)
[2024-06-27 07:05] LABS: BURR CELLS FEW; PLATELET SUFFICIENCY NORMAL (NORMAL); POLYCHROMASIA SLIGHT; ROULEAUX SLIGHT; TARGET CELLS FEW; TOTAL CELLS COUNTED 100 #CELLS; TOXIC GRANULATION SLIGHT
[2024-06-27 08:00] VITALS: BP 137/83
[2024-06-27] MEDS ORDERED: BARIUM SULFATE 2% 450 ML BOT PO SCH ×2 (08:15→10:00)
[2024-06-27] MEDS ORDERED: Iodixanol 320 100 ML VIAL IV ONE ×2 (09:30→12:30)
[2024-06-27 12:00] VITALS: BP 104/71
[2024-06-27] MEDS ORDERED: POTASSIUM CHLORIDE 20 MEQ TAB PO ONE (14:00)
[2024-06-27] MEDS ORDERED: MAGNESIUM SULFATE 50 ML IV SCH (14:00)
[2024-06-27 16:00] VITALS: BP 117/74
[2024-06-27 20:00] VITALS: BP 114/72
[2024-06-28] VITALS: BP 134/79
[2024-06-28 05:57] LABS: ALKALINE PHOSPHATASE 99 U/L (46-116); BUN 21 mg/dl (9-23); CHLORIDE 94 mmol/L (98-107); POTASSIUM 4.4 mmol/L (3.4-5.1); SGPT/ALT 65 U/L (5-49); TOTAL PROTEIN 6.1 gm/dL (6.0-8.0)
[2024-06-28 06:36] LABS: BASO % 0.2 % (0.0-1.0); EOS % 0.1 % (1.0-4.0); LYMPH # 0.8 10*3/uL (1.3-4.4); LYMPH % 4.8 % (27.0-41.0); MEAN CELL VOLUME 91.2 fl (80.0-94.0); MEAN CORPUSCULAR HGB 28.7 pg (27.0-31.0); MEAN CORPUSCULAR HGB CONC 31.5 g/dl (33.0-37.0); MEAN PLATELET VOLUME 10.3 fl (9.6-12.3); MONO # 0.7 10*3/uL (0.1-1.0); MONO % 4.3 % (3.0-9.0); NEUT # 14.6 10*3/uL (2.3-7.9); NEUT % 89.1 % (47.0-73.0); NUCLEATED RED BLOOD CELL 0.2 % (0.0-0.0); RED BLOOD COUNT 3.73 10*6/uL (4.50-5.90); RED CELL DISTRI WIDTH 16.2 % (0-14.5); WHITE BLOOD COUNT 16.3 10*3/uL (4.8-10.8)
[2024-06-28 06:37] LABS: PLATELET COUNT AUTOMATED 220 10*3/uL (130-400)
[2024-06-28 08:00] VITALS: BP 154/76
[2024-06-28 12:00] VITALS: BP 138/91
[2024-06-28 16:00] VITALS: BP 144/89
[2024-06-28 20:00] VITALS: BP 134/89
[2024-06-28] MEDS ORDERED: ZOLPIDEM TARTRATE 5 MG TAB PO SCH (22:00)
[2024-06-29] VITALS: BP 148/97
[2024-06-29 05:16] LABS: ALKALINE PHOSPHATASE 112 U/L (46-116); BUN 15 mg/dl (9-23); CHLORIDE 89 mmol/L (98-107); POTASSIUM 3.7 mmol/L (3.4-5.1); SGPT/ALT 55 U/L (5-49); TOTAL PROTEIN 6.2 gm/dL (6.0-8.0)
[2024-06-29 06:22] LABS: HEMATOCRIT 35.9 % (42.0-52.0); MEAN CELL VOLUME 88.2 fl (80.0-94.0); MEAN CORPUSCULAR HGB CONC 32.9 g/dl (33.0-37.0); NUCLEATED RED BLOOD CELL 0.1 % (0.0-0.0); RED BLOOD COUNT 4.07 10*6/uL (4.50-5.90); RED CELL DISTRI WIDTH 16.1 % (0-14.5); WHITE BLOOD COUNT 17.1 10*3/uL (4.8-10.8)
[2024-06-29 06:23] LABS: MANUAL DIFF REFLEX YES; PLATELET COUNT AUTOMATED 290 10*3/uL (130-400)
[2024-06-29 06:43] LABS: PLATELET SUFFICIENCY NORMAL (NORMAL); POLYCHROMASIA SLIGHT; TOTAL CELLS COUNTED 100 #CELLS; TOXIC GRANULATION SLIGHT
[2024-06-29 06:44] LABS: BURR CELLS FEW; OVALOCYTES FEW; ROULEAUX SLIGHT; SCHISTOCYTES FEW
[2024-06-29 08:20] VITALS: BP 127/86
[2024-06-29] MEDS ORDERED: Atropine Sulfate/Diphenoxyla 1 TAB TAB PO PRN (09:30)
[2024-06-29] MEDS ORDERED: HEEL PROTECTOR DEVICE ONE (11:18)
[2024-06-29 12:00] VITALS: BP 127/78
[2024-06-29] MEDS ORDERED: FOAM BANDAGE HEEL T ONE (13:37)
[2024-06-29] MEDS ORDERED: busPIRone Hydrochloride 10 MG TAB PO SCH (14:00)
[2024-06-29] MEDS ORDERED: DIVALPROEX ER 500 MG TAB PO SCH (15:20)
[2024-06-29 16:00] VITALS: BP 143/86
[2024-06-29] MEDS ORDERED: MAGNESIUM SULFATE 50 ML IV ONE (18:10)
[2024-06-29] MEDS ORDERED: Nicotine 21 MG PATCH T SCH (19:20)
[2024-06-29 20:00] VITALS: BP 119/69
[2024-06-29] MEDS ORDERED: SODIUM CHLORIDE 1 GM TAB PO SCH (22:00)
[2024-06-30] VITALS: BP 115/64
[2024-06-30 05:55] LABS: ALKALINE PHOSPHATASE 112 U/L (46-116); BUN 15 mg/dl (9-23); CHLORIDE 90 mmol/L (98-107); SGPT/ALT 38 U/L (5-49)
[2024-06-30 06:32] LABS: BASO % 0.2 % (0.0-1.0); EOS % 0.3 % (1.0-4.0); HEMATOCRIT 33.9 % (42.0-52.0); LYMPH # 0.6 10*3/uL (1.3-4.4); LYMPH % 4.6 % (27.0-41.0); MEAN CELL VOLUME 86.5 fl (80.0-94.0); MEAN CORPUSCULAR HGB 28.8 pg (27.0-31.0); MEAN CORPUSCULAR HGB CONC 33.3 g/dl (33.0-37.0); MEAN PLATELET VOLUME 10.2 fl (9.6-12.3); MONO # 0.5 10*3/uL (0.1-1.0); NEUT # 11.6 10*3/uL (2.3-7.9); NEUT % 89.8 % (47.0-73.0); PLATELET COUNT AUTOMATED 357 10*3/uL (130-400); RED BLOOD COUNT 3.92 10*6/uL (4.50-5.90); RED CELL DISTRI WIDTH 16.2 % (0-14.5); WHITE BLOOD COUNT 12.9 10*3/uL (4.8-10.8)
[2024-06-30 08:00] VITALS: BP 122/69
[2024-06-30] MEDS ORDERED: DIVALPROEX SOD500 M1 PO (11:35)
[2024-06-30] MEDS ORDERED: SODIUM CHLORI1000 M5 PO (11:35)
[2024-06-30] MEDS ORDERED: MAGNESIUM SULFATE 50 ML IV ONE (13:35)
[2024-06-30 16:00] VITALS: BP 118/63
[2024-06-30] MEDS ORDERED: ACETAMINOPHEN 325 MG TAB PO ONE (17:35)
== END 2024-06-30 18:32 | DRG 871 ==
LOC: ED 19:06 → EDHOLD 06-22 07:30 → ICCU 06-22 07:30 → EDHOLD 06-22 07:31 → ICCU 06-22 08:16
PROVIDERS: Internal Medicine; Internal Medicine Critical Care Medicine; Internal Medicine Infectious Disease; Internal Medicine Nephrology; ADMIT Internal Medicine; ATTEND Internal Medicine
PROC: 5A09357 Assistance with Respiratory Ventilation, Less than 24 Consecutive Hours, Continuous Positive Airway Pressure (ICD-10-PCS; 2024-06-22)
PROC: 05HB33Z Insertion of Infusion Device into Right Basilic Vein, Percutaneous Approach (ICD-10-PCS; principal; 2024-06-23)
DX: A40.9 Streptococcal sepsis, unspecified (principal); E43 Unspecified severe protein-calorie malnutrition; G93.41 Metabolic encephalopathy; I21.A1 Myocardial infarction type 2; J96.01 Acute respiratory failure with hypoxia; J96.02 Acute respiratory failure with hypercapnia; J15.4 Pneumonia due to other streptococci; J18.9 Pneumonia, unspecified organism; F10.239 Alcohol dependence with withdrawal, unspecified; E22.2 Syndrome of inappropriate secretion of antidiuretic hormone; Z68.1 Body mass index [BMI] 19.9 or less, adult; J44.1 Chronic obstructive pulmonary disease with (acute) exacerbation; J44.0 Chronic obstructive pulmonary disease with (acute) lower respiratory infection; Z16.21 Resistance to vancomycin; N17.9 Acute kidney failure, unspecified; I50.9 Heart failure, unspecified; E87.5 Hyperkalemia; R65.20 Severe sepsis without septic shock; R74.01 Elevation of levels of liver transaminase levels; F41.1 Generalized anxiety disorder; E83.42 Hypomagnesemia; R19.7 Diarrhea, unspecified; R62.7 Adult failure to thrive; L89.329 Pressure ulcer of left buttock, unspecified stage; L89.319 Pressure ulcer of right buttock, unspecified stage; E87.8 Other disorders of electrolyte and fluid balance, not elsewhere classified; R73.9 Hyperglycemia, unspecified; E88.09 Other disorders of plasma-protein metabolism, not elsewhere classified; F15.10 Other stimulant abuse, uncomplicated; E86.1 Hypovolemia; N18.9 Chronic kidney disease, unspecified; R13.12 Dysphagia, oropharyngeal phase; Z79.899 Other long term (current) drug therapy; Z79.01 Long term (current) use of anticoagulants; Z79.2 Long term (current) use of antibiotics; Z88.8 Allergy status to other drugs, medicaments and biological substances; Z87.891 Personal history of nicotine dependence; Y90.0 Blood alcohol level of less than 20 mg/100 ml

== ENCOUNTER → 2024-10-06 | Outpatient (CLI) | payer MEDICARE ==
[~2024-10-06] MED LIST changes: +ALBUTEROL HFA 90MCG; +AMOX-CLAV 875-1 EACH PO; +BUSPIRONE HCL10 MG PO; +DIVALPROEX SOD500 M1 PO; +HYDROXYZINE HCL25 MG PO; +LEVOFLOXACIN750 M2 PO; +SODIUM CHLORI1000 M5 PO; +URE-NA15 GM PO
[2024-10-06 13:16] LABS: BILIRUBIN Negative (Negative); BLOOD 1+ (Negative); CLARITY Turbid (Clear); COLOR Yellow (Yellow); GLUCOSE Negative (Negative); KETONE Negative (Negative); LEUKO ESTERASE 3+ (Negative); NITRITE Negative (Negative); SPECIFIC GRAVITY 1.015 (1.001-1.030); UROBILINOGEN 0.2 E.U./dl (0.0-1.0)
[2024-10-06 13:16] LABS: MEAN CELL VOLUME 90.9 fl (80.0-94.0); MEAN CORPUSCULAR HGB 29.5 pg (27.0-31.0); MEAN CORPUSCULAR HGB CONC 32.4 g/dl (33.0-37.0); MEAN PLATELET VOLUME 8.4 fl (9.6-12.3); RED BLOOD COUNT 4.51 10*6/uL (4.50-5.90); RED CELL DISTRI WIDTH 15.7 % (0-14.5); WHITE BLOOD COUNT 9.2 10*3/uL (4.8-10.8)
[2024-10-06 13:39] LABS: CHOLESTEROL 188 mg/dL (<200); CPK 75 U/L (34-171); LDL CHOLESTEROL 101 mg/dL (9-159); TRIGLYCERIDES 101 mg/dl (<150)
[2024-10-06 13:43] LABS: ALKALINE PHOSPHATASE 130 U/L (46-116); BUN 18 mg/dl (9-23); CHLORIDE 95 mmol/L (98-107); FREE T4 1.44 ng/dl (0.89-1.76); POTASSIUM 4.4 mmol/L (3.4-5.1); TOTAL PROTEIN 8.4 gm/dL (6.0-8.0)
[2024-10-06 13:44] LABS: SGPT/ALT < 7 U/L (5-49)
[2024-10-06 14:04] LABS: WBC TNTC wbc/hpf (0-5)
[2024-10-06 14:05] LABS: BACTERIA 3+; RBC 16-20 rbc/hpf (0-2)
== END | disposition home or self-care (01) ==
LOC: LAB 12:31
PROVIDERS: Family Medicine; ATTEND Internal Medicine Nephrology
DX: Z12.5 Encounter for screening for malignant neoplasm of prostate (principal); E55.9 Vitamin D deficiency, unspecified; R53.83 Other fatigue; E78.00 Pure hypercholesterolemia, unspecified; G47.33 Obstructive sleep apnea (adult) (pediatric); D64.89 Other specified anemias; E22.2 Syndrome of inappropriate secretion of antidiuretic hormone; E74.9 Disorder of carbohydrate metabolism, unspecified; G60.8 Other hereditary and idiopathic neuropathies; R74.8 Abnormal levels of other serum enzymes; Z79.899 Other long term (current) drug therapy

== ENCOUNTER → 2024-12-27 | Outpatient (CLI) | payer MEDICARE | END | disposition home or self-care (01) | LOC: RAD 12:40 | PROVIDERS: ATTEND Family Medicine | DX: J44.9 Chronic obstructive pulmonary disease, unspecified (principal); R06.02 Shortness of breath; R05.9 Cough, unspecified; R09.89 Other specified symptoms and signs involving the circulatory and respiratory systems ==